=== PATIENT | female | born 1985 | race African-American/Black ===

== ENCOUNTER 2025-01-12 02:13 | Emergency (ER) | payer MEDICAID ==
[~2025-01-12] VITALS: Ht 167.6 cm; Wt 60.0 kg
[2025-01-12 02:22] VITALS: TEMP 37.1; O2SAT 100
[2025-01-12] MEDS: SODIUM CHLORIDE 0.9% 1,000 ML IV ONE (02:54)
[2025-01-12 04:19] LABS: BASOPHILS % 0.3 % (0.0-2.0); EOSINOPHILS % 0.1 % (0.0-5.0); HEMATOCRIT. 39.5 % (36.0-48.0); HEMOGLOBIN. 13.3 g/dL (12.0-16.0); LYMPHOCYTES % 13.3 % (20.0-50.0); MEAN CORPUSCULAR HEMOGLOBIN 29.7 pg (28.0-32.0); MEAN CORPUSCULAR HGB CONC 33.7 g/dL (31.0-37.0); MEAN CORPUSCULAR VOLUME 88.4 fL (81.0-99.0); MEAN PLATELET VOLUME 7.3 fl (7.4-10.4); MONOCYTES % 6.4 % (2.0-8.0); NEUTROPHILS % 79.9 % (40.0-76.0); PLATELET 224 x1000/uL (130-400); RED BLOOD CELL COUNT 4.46 mill/uL (4.2-5.4); RED CELL DISTRIBUTION WIDTH 13.6 % (11.6-14.6); WHITE BLOOD COUNT 8.1 x1000/uL (4.5-11.0)
[2025-01-12 04:28] LABS: CHLORIDE 109 mEq/L (98-107); POTASSIUM 3.6 mEq/L (3.5-5.1); SODIUM 142 mEq/L (136-145)
[2025-01-12 04:29] LABS: CALCIUM 8.6 mg/dL (8.7-10.4); CARBON DIOXIDE 25 mEq/L (21-32)
[2025-01-12 04:32] LABS: D-DIMER < 0.19 mg/L FEU (<0.50); PROTHROMBIN TIME 10.9 sec (9.6-11.0)
[2025-01-12 04:34] LABS: CREATININE 0.7 mg/dL (0.6-1.0); GLUCOSE 116 mg/dL (70-105); UREA NITROGEN BLOOD 13 mg/dL (9-23)
[2025-01-12 04:35] LABS: HCG SCREEN NEGATIVE
[2025-01-12 04:40] LABS: TROPONIN I HIGH SENSITIVITY < 4 ng/L (3.0-34)
[2025-01-12 05:31] VITALS: O2SAT 100
[2025-01-12 05:34] LABS: ETHANOL BLOOD < 10 mg/dL (<10)
[2025-01-12 05:40] LABS: CLARITY URINE CLEAR (CLEAR); COLOR URINE YELLOW (YELLOW); GLUCOSE URINE NEGATIVE (NEGATIVE); KETONES URINE TRACE (NEGATIVE); LEUKOCYTE ESTERASE URINE NEGATIVE (NEGATIVE); NITRITE URINE NEGATIVE (NEGATIVE); OCCULT BLOOD URINE NEGATIVE (NEGATIVE); PH URINE 6.5 (4.5-8.0); PROTEIN URINE TRACE (NEGATIVE); SPECIFIC GRAVITY URINE 1.026 (1.005-1.030)
[2025-01-12 05:47] LABS: *AMPHETAMINES SCREEN URINE NEGATIVE (NEGATIVE); *BARBITURATES SCREEN URINE NEGATIVE (NEGATIVE); *BENZODIAZEPINES SCREEN URINE NEGATIVE (NEGATIVE); *COCAINE SCREEN URINE NEGATIVE (NEGATIVE); CANNABINOID URINE SCREEN PRESUMPTIVE POSITIVE (NEGATIVE); ECSTASY MDMA SCREEN URINE NEGATIVE (NEGATIVE); METHADONE URINE SCREEN NEGATIVE (NEGATIVE); OPIATES URINE SCREEN NEGATIVE (NEGATIVE); PHENCYCLIDINE URINE SCREEN NEGATIVE (NEGATIVE)
[2025-01-12 06:24] VITALS: BP 104/64; PULSE 94; RESP 22
[2025-01-12 07:18] LABS: SQUAMOUS EPITHELIAL CELL URINE 1+ /lpf (RARE/1+)
[2025-01-12 07:19] LABS: RBC URINE 0-2 /hpf (0-2); WBC URINE 0-2 /hpf (0-2)
[2025-01-12 07:20] LABS: BACTERIA URINE 1+
== END 2025-01-12 06:31 | disposition home or self-care (01) ==
LOC: ER 02:13
DX: R00.2 Palpitations (principal); F41.9 Anxiety disorder, unspecified; F32.A Depression, unspecified; R00.0 Tachycardia, unspecified; Z79.899 Other long term (current) drug therapy
CPT/HCPCS: 80305; 80048; 81003; 80320; 84703; 83880; 83690; 85025; 85379; 85610; 84484; 36415; 71045; 93005; 96360; 99285; J7030; Z7610; A4606; G0480